=== PATIENT | male | born 1965 | race Caucasian/White ===

== ENCOUNTER 2016-04-28 05:27 | Inpatient (IN) | payer OTHER ==
--- NOTE | ~2016-04-28 | PA ---
Unit #: [id number] #: [id number] Patient: SAMY DELAROSA [id number] [place] [address] [id number] MR#: [id number] NAME: SAMY DELAROSA ROOM: 85 Age: 50 Sex: M Admission Date: 04/28/2016 : 1965 Date of Assessment: 04/28/2016 Attending Physician: Jose Jacome M.D. Admitting Physician: Jose Jacome M.D. Primary Care Physician: Primary Care Physician No PSYCHIATRIC ASSESSMENT DATE OF SERVICE 04/28/2016. INFORMANTS The patient reliability, fair; chart reliability, good. CHIEF COMPLAINT Alcohol abuse and pill abuse. HISTORY OF PRESENT ILLNESS Mr. Samy Delarosa is a 50-year-old male, seen on 04/28/2016. The patient presented to [facility] with suicidal ideation with a plan to take overdose of alcohol. The patient reported that he thinks of suicide daily. The patient reported that he drinks alcohol and took pills in an apparent suicide attempt. The patient reported that he was angry when he woke up and that he had not under diet. The patient reported that he has been drinking between a pint and a fifth of vodka daily for the last 2 weeks. The patient reports taking 30 Percocet daily. The patient reports depression and anxiety, not eating, not sleeping well. The patient reported that he is from his , 26 years, last week. The patient needed inpatient admission at this time for psychiatric stabilization. PAST PSYCHIATRIC HISTORY Remarkable for history of treatment in 1997 at [facility], in 1997, inpatient at [facility] for depression. FAMILY HISTORY AND SOCIAL HISTORY The patient is currently homeless, poor support system. The patient reported history of alcohol use in father and mother. History of alcoholism on both sides of the family. No history of any abuse. MEDICAL HISTORY Unremarkable for any chronic medical illness. Musculoskeletal; muscle strength and tone, no atrophy or abnormal movement. Gait normal. MEDICATION HISTORY None. ALLERGIES No known drug allergies. SUBSTANCE ABUSE HISTORY Unit #: [id number] #: [id number] Patient: SAMY DELAROSA The patient reported alcohol use, age of onset 16; a pint to one-fifth of vodka; opioid, age of onset 24, 30 mg daily orally; prescription medication, age of onset 48. The patient reported history of blackout, but no history of any IV drug use. REVIEW OF SYSTEMS HEENT: Eyes, clear. Ears, nose, mouth, and throat; clear. CARDIOVASCULAR: Unremarkable. RESPIRATORY: Unremarkable. GI: Unremarkable. : Unremarkable. SKIN: Unremarkable. LYMPH NODE: Unremarkable. NEUROLOGIC: Unremarkable. ENDOCRINE: Unremarkable. HEMATOLOGIC: Unremarkable. ALLERGIC/IMMUNOLOGIC: Unremarkable. MUSCULOSKELETAL: Muscle strength and tone, no atrophy or abnormal movement. Gait normal. MENTAL STATUS EXAMINATION CONSTITUTIONAL: Measurement of vital signs; temperature 98.4, pulse 88, respirations 16, and blood pressure 151/94. Height is 6 feet and weight 174 pounds. GENERAL APPEARANCE: The patient dressed casually. The patient did not show any facial deformity. MUSCULOSKELETAL: Please see above. PSYCHIATRIC EXAMINATION Description of speech; regular rate, normal volume, normal articulation. Description of thought process, goal directed. Description of association, intact. Description of abnormal psychotic thinking; the patient denied any hallucinations or delusions, but suicidal ideation with a plan. Denied any homicidal ideation. Substance abuse. Description of the patient's judgment: Concerning everyday activity, poor. Social situation, poor. Concerning psychiatric condition, poor. Complete mental status examination; oriented in time, place, and person. Recent and remote memory, fair. Attention span and concentration, fair. Language; able to name object, repeat phrases. Fund of knowledge; aware of current event, passive vocabulary intact. Mood and affect, sad and dysphoric. Insight and judgment were fair to poor. ASSETS AND LIABILITIES Assets; the patient is articulate, able to take care of his ADL. Liabilities; history of substance abuse, depression. ADMITTING DIAGNOSES Psychiatric: 1. Major depressive disorder, recurrent, severe, F33.2. 2. Alcohol use disorder, severe, F10.20. 3. Opioid use disorder, severe, F11.20. Secondary diagnosis: Deferred. Medical diagnoses: Hypertension, hard of hearing. Stressors: Psychosocial stressors. Unit #: [id number] #: [id number] Patient: SAMY DELAROSA PSYCHIATRIC PLAN, TREATMENT GOAL, AND DISCHARGE PLAN 1. Advised to admit the patient on the inpatient unit. Provide safe, supportive, and structured environment. 2. Ordered labs; CBC, CMP, UA, and UDS. 3. Precaution for self-harm and SP1 precaution. 4. The patient was started on detox protocol and detox monitoring. Advised to continue with current medications; amitriptyline 50 mg at bedtime, Neurontin 300 mg t.i.d., Lamictal 200 mg daily, and Zestril 10 mg daily. 5. The patient is to attend all the programing, group therapy, individual therapy, family session, and chemical dependency group. 6. Treatment goal is to attain euthymic mood, gain insight into his problem, and learn coping skills. 7. Discharge plan: Plan is to stabilize the patient and consider followup in outpatient program. ESTIMATED LENGTH OF STAY 5 to 7 days. Dictated by... Tory Beal/manuel TD: 04/28/2016 23:59 JOB #: [id number] PSYCHIATRIC ASSESSMENT X Jose Jacome MD PSYCHIATRIC ASSESSMENT
--- NOTE | ~2016-04-28 | DS ---
Unit #: [id number] #: [id number] Patient: SAMY GALICIA [id number] [facility] [address] [place] [address] [id number] MR#: [id number] NAME: SAMY GALICIA ROOM: [facility] Age: 50 Sex: M Admission Date: 04/28/2016 : 1965 Discharge Date: 05/02/2016 Attending Physician: Jose Jacome M.D. Primary Care Physician: Primary Care Physician No DISCHARGE SUMMARY REASON FOR ADMISSION Suicidal ideation and alcohol detox. DIAGNOSTIC STUDIES LABORATORY RESULTS: Remarkable for an AST of 202 and ALT 182. Urine drug screen is negative. HOSPITAL COURSE The patient was admitted to inpatient unit on 04/28/2016 and discharged on 05/02/2016. The patient was treated on the inpatient unit with chemical dependency group, expressive therapy, psychoeducation, psychotherapy, and structured milieu. The patient responded well with the above modalities of treatment and following medications. Subsequently, the patient was discharged with a plan to follow up in outpatient program. DISCHARGE MEDICATIONS Elavil 50 mg at bedtime for sleep, lisinopril 10 mg daily for hypertension, Lamictal 200 mg once daily for mood stabilization, and Neurontin 300 mg t.i.d. for mood stabilization and anxiety. DISCHARGE DIAGNOSES Psychiatric: 1. Major depressive disorder, recurrent, severe. 2. Alcohol use disorder, severe. 3. Opioid use disorder, severe. Secondary diagnosis: Deferred. Medical diagnoses: Hypertension, hard of hearing. Stressors: Psychosocial stressors. DISCHARGE INSTRUCTIONS The patient is to follow up in outpatient clinic as per director social welfare. PROGNOSIS Guarded. DIET AND ACTIVITY As tolerated. Dictated by... Jose Jacome M.D. Unit #: [id number] #: [id number] Patient: SAMY GALICIA SZC/modl TD: 05/02/2016 21:28 JOB #: [id number] DISCHARGE SUMMARY X Jose Jacome MD X DISCHARGE SUMMARY
--- NOTE | ~2016-04-28 | PN ---
Unit #: [id number] #: [id number] Patient: SAMY GALICIA [id number] [facility] [address] [place] [address] [id number] MR#: [id number] NAME: SAMY GALICIA ROOM: P185 Age: 50 Sex: M Admission Date: 04/28/2016 : 1965 Attending Physician: Jose Jacome M.D. Admitting Physician: Jose Jacome M.D. Primary Care Physician: Primary Care Physician Gail SAHU PROGRESS NOTES DATE 05/01/2016 DISCUSSION Mr. Rosales is a 50-year-old male, seen on 05/01/2016. The patient interviewed, chart reviewed, and obtained information from the nursing staff. The patient was compliant and cooperative. Mood sad and dysphoric, flat affect, and guarded. The patient has a history of polysubstance abuse. He continues to be isolative, guarded, and flat affect. No self-harming behavior. The patient is compliant with medication. REVIEW OF SYSTEMS Complete review of systems unremarkable. MENTAL STATUS EXAMINATION General appearance: Patient casually dressed. Attention span and concentration, fair. Oriented to place and person. Mood and affect, sad and dysphoric. Speech, monotone. Thought process, concrete. Association, the patient denied any thoughts of harming self or others or any psychotic symptoms. Recent and remote memory, poor. Insight and judgment, poor. DIAGNOSIS Mood disorder, NOS. ASSESSMENT/PLAN Advised to continue with the current medication and therapeutic protocol with a plan to consider discharge this week and consider further adjustment of medication. Dictated by... Tory Beal/franklyn TD: 05/02/2016 08:14 JOB #: [id number] Unit #: [id number] #: [id number] Patient: SAMY GALICIA [facility] PROGRESS NOTES X Jose Jacome MD PROGRESS NOTE
--- NOTE | ~2016-04-28 | PN ---
Unit #: [id number] #: [id number] Patient: SAMY GALICIA [id number] [facility] [address] [place] [address] [id number] MR#: [id number] NAME: SAMY GALICIA ROOM: [facility] Age: 50 Sex: M Admission Date: 04/28/2016 : 1965 Attending Physician: Jose Jacome M.D. Admitting Physician: Jose Jacome M.D. Primary Care Physician: Primary Care Physician Gail NIEVES NOTES DATE OF SERVICE: 04/29/2016 DISCUSSION Mr. Rosales is a 50-year-old male. The patient interviewed, chart reviewed, and obtained information from nursing staff. The patient was compliant and cooperative. Mood was sad, dysphoric, flat affect, guarded. The patient reports making progress, but still having the above-mentioned symptoms of withdrawals. The patient's thyroid function tests were unremarkable. CMP was remarkable for AST and ALT high at 202 and 182. Other CMP unremarkable. REVIEW OF SYSTEMS Complete review of systems unremarkable. MENTAL STATUS EXAMINATION General appearance, the patient is dressed casually. Attention span and concentration, fair. Oriented in place and person. Mood and affect, labile. Speech, slow. Thought process, circumstantial. Denied any thoughts of harming self or others, but guarded. Recent and remote memory, poor. Insight and judgment, poor. DIAGNOSES 1. Alcohol use disorder, severe. 2. Mood disorder, not otherwise specified. ASSESSMENT AND PLAN Advised to continue with current medication and therapeutic protocol. We will monitor response to medication and make further adjustment of medication. Dictated by... Tory Beal/manuel TD: 05/01/2016 01:33 JOB #: [id number] Unit #: [id number] #: [id number] Patient: SAMY GALICIA LUIS ALBERTO NIEVES NOTES X Jose Jacome MD NOTE
--- NOTE | ~2016-04-28 | PN ---
Unit #: [id number] #: [id number] Patient: SAMY DELAROSA [id number] [facility] [address] [place] [address] [id number] MR#: [id number] NAME: SAMY DELAROSA ROOM: [facility] Age: 50 Sex: M Admission Date: 04/28/2016 : 1965 Attending Physician: Jose Jacome M.D. Admitting Physician: Jose Jacome M.D. Primary Care Physician: Primary Care Physician Gail NIEVES NOTES DATE OF SERVICE: 04/30/2016 DISCUSSION Samy Delarosa is a 50-year-old male, seen on 04/30/2016. The patient interviewed, chart reviewed, and obtained information from nursing staff. The patient was compliant and cooperative, able to maintain safe behavior, but still seclusive, isolative, and guarded. Complete review of systems unremarkable. MENTAL STATUS EXAMINATION General appearance, the patient dressed casually. Attention span and concentration, fair. Oriented in place and person. Mood and affect were labile. Speech, regular rate. Thought process, goal directed. The patient denied any thoughts of harming self or others or any psychotic symptom, but seclusive and isolative. Recent and remote memory, poor. Insight and judgment, poor. DIAGNOSES 1. Alcohol use disorder, severe. 2. Mood disorder, not otherwise specified. ASSESSMENT AND PLAN Advised to continue with current medication and therapeutic protocol. If needed, consider further adjustment of medication. Vital signs; temperature 98.4, pulse 88, and blood pressure 126/90. Dictated by... Tory Beal/manuel TD: 05/01/2016 20:48 JOB #: [id number] Unit #: [id number] #: [id number] Patient: SAMY DELAROSA [facility] PROGRESS NOTES X Jose Jacome MD PROGRESS NOTE
--- NOTE | ~2016-04-28 | HP ---
Unit #: [id number] #: [id number] Patient: SAMY GALICIA [id number] [place] [address] [id number] MR#: [id number] NAME: SAMY GALICIA ROOM: P185 Age: 50 Sex: M Admission Date: 04/28/2016 : 1965 Attending Physician: Jose Jacome M.D. Admitting Physician: Jose Jacome M.D. Primary Care Physician: Primary Care Physician No HISTORY AND PHYSICAL HISTORY OF PRESENT ILLNESS Samy is a 50 year old admitted to [facility] because of his polysubstance abuse which includes alcohol and pain pills. PAST MEDICAL HISTORY 1. Long history of polysubstance abuse to include alcohol and pain pills. 2. High blood pressure. 3. Patient is hard of hearing. PAST SURGICAL HISTORY Nothing reported. ALLERGIES No known drug allergies. SOCIAL HISTORY Smokes 2 packs per day. Binge drinks at least a fifth of liquor on a daily basis and admits to history of abusing pain pills. FAMILY HISTORY Medically noncontributory. REVIEW OF SYSTEMS CONSTITUTIONAL: No fever or chills. HEENT: Denies any sore throat, ear pain or runny nose. CARDIOVASCULAR: Denies chest pain, irregular heart rhythm or palpitations. CHEST: Denies shortness of breath or cough. No hemoptysis. GASTROINTESTINAL: Denies nausea, vomiting, diarrhea or chronic constipation. ENDOCRINE: Denies history of increased thirst or urination. No recent significant weight loss or gain. GENITOURINARY: Denies dysuria, frequency, or hematuria. SKIN: Denies any rashes. HEMATOLOGIC: Denies history of increased bleeding or bruising. MUSCULOSKELETAL: Denies any hot, swollen joints. No generalized muscle pain. NEUROLOGIC: Denies problems with vision or speech. No frequent, severe headaches. No numbness, tingling or weakness in any extremities. Denies loss of bladder or bowel control. CURRENT MEDICATIONS 1. Detox protocol. Unit #: [id number] #: [id number] Patient: SAMY GALICIA 2. Amitriptyline 50 mg q.h.s. 3. Neurontin 300 mg t.i.d. 4. Lamictal 200 mg daily. 5. Zestril 10 mg daily. PHYSICAL EXAMINATION GENERAL: Alert, well-nourished, in no apparent distress. VITAL SIGNS: Blood pressure 150/94, heart rate 88, respirations 16, temperature 98.6. WEIGHT: 174. HEIGHT: 6 feet 0 inches. SKIN: Warm and dry without rash or lesion. HEENT: Normocephalic. TMs not viewed. Oral and nasal passages clear. Conjunctivae clear. PERRLA. EOMs intact. NECK: Supple without lymphadenopathy or thyromegaly. HEART: Regular rate and rhythm without murmur. LUNGS: Clear. ABDOMEN: Soft, nontender. : Not done. EXTREMITIES: No evidence of cyanosis, clubbing or edema. Moves all without focal deficit. NEUROLOGICAL: Grossly within normal limits. Cranial Nerves: II: Visual woodward are intact. III, IV AND : Extraocular movements are intact. Pupils are equal, round and reactive to light. V: Facial sensation is grossly normal. VII: Facial movements and expression are normal. VIII: Auditory acuity grossly intact. IX, X: Uvula is midline. Phonation is normal. XI: Patient shrugs shoulders and turns head normally. XII: Tongue protrudes in the midline. Sensory and Motor Function: Sensory and motor sensation is grossly normal. Motor: moves all extremities well. Coordination: Gait is normal. Deep Tendon Reflexes: Intact. IMPRESSION Psychiatric admission. RECOMMENDATIONS PSYCHIATRIC: Per psychiatrist. MEDICAL: 1. See no contraindications to participate in facility's activities. 2. Detox per protocol. 3. Continue Zestril. Monitor blood pressure q. shift. MEDICAL PROGNOSIS Good. MEDICAL CONDITION Stable. Dictated by... Marsha GonsalezADamien-Leigha. for Tory King/emily Unit #: [id number] #: [id number] Patient: SAMY GALICIA TD: 04/28/2016 16:44 JOB #: [id number] HISTORY AND PHYSICAL X Gogo Gilliland HISTORY AND PHYSICAL
[2016-04-28 10:02] LABS: URINE APPEARANCE CLEAR; URINE BILIRUBIN NEG (NEG); URINE BLOOD 1+ (NEG); URINE COLOR DK YELLOW; URINE GLUCOSE NEG (NEG); URINE KETONE TRACE (NEG); URINE LEUKOCYTE ESTERASE TRACE (NEG); URINE NITRATE NEG (NEG); URINE PH 7.5 (5-8); URINE PROTEIN NEG (NEG); URINE SPECIFIC GRAVITY 1.024 (1.003-1.035)
[2016-04-28 10:06] LABS: URBCS1 AUWI 25-50 /[HPF] (0-2); URINE BACTERIA AUWI NEG (NEGATIVE); URINE SQUAMOUS EPITHELIAL CELL NONE SEEN /[HPF]; UWBCS1 AUWI 0-2 (0-5)
[2016-04-28 10:37] LABS: AMPHETAMINE NEG (NEG); BARBITURATES NEG (NEG); BENZODIAZEPINES NEG (NEG); COCAINE NEG (NEG); MARIJUANA NEG (NEG); OPIATES NEG (NEG); TRICYCLIC ANTIDEPRESSANTS POS (NEG); U METHADONE NEG (NEG)
[2016-04-29 09:28] LABS: BASOPHIL% 0.6 % (0-2.5); EOSINOPHIL# 0.2 X10e3 (0-0.7); EOSINOPHIL% 2.6 % (0.0-7.0); HEMATOCRIT 44.3 % (38.0-50.0); HEMOGLOBIN 14.5 gm/dL (13.0-16.0); LYMPHOCYTE# 1.4 X10e3 (1.0-3.5); LYMPHOCYTE% 16.5 % (17.0-45.0); MEAN CELL VOLUME 84.7 FL (83-96); MEAN CORPUSCULAR HEMOGLOBIN 27.7 PG (28-34); MEAN CORPUSCULAR HGB CONC 32.7 g/dL (30-36); MEAN PLATELET VOLUME 8.9 FL (6.5-11.5); MONOCYTE# 0.5 X10e3 (0-1.0); MONOCYTE% 6.2 % (3.0-12.0); NEUTROPHIL# 6.1 X10e3 (1.5-7.1); NEUTROPHIL% 74.1 % (40-75); PLATELET COUNT 164 X10e3 (140-420); RED BLOOD COUNT 5.23 X10e (3.90-5.60); RED CELL DISTRIBUTION WIDTH 14.4 % (11.0-15.5); WHITE BLOOD COUNT 8.2 X10e3 (4.0-10.5)
[2016-04-29 09:35] LABS: DIFF IND NO
[2016-04-29 09:50] LABS: ALBUMIN SERUM 3.6 g/dL (3.5-5.0); ALKALINE PHOSPHATASE 81 U/L (32-92); ALT (SGPT) 182 U/L (10-40); AST (SGOT) 202 U/L (10-42); BILIRUBIN,TOTAL 0.4 mg/dL (0.2-2.0); BLOOD UREA NITROGEN 11 mg/dL (9-23); BUN/CREATININE RATIO 15.71; CALCIUM SERUM 8.8 mg/dL (8.4-10.2); CARBON DIOXIDE 27 mmol/L (22-31); CHLORIDE 103 mmol/L (100-111); CREATININE SERUM 0.7 mg/dL (0.6-1.4); GLOM FILT RATE Estimated ABOVE60 mL/min (>60); GLUCOSE FASTING 88 mg/dL (70-110); POTASSIUM 3.9 mmol/L (3.5-5.1); PROTEIN TOTAL SERUM 6.1 g/dL (6.0-8.3); SODIUM 137 mmol/L (135-145)
[2016-04-29 09:53] LABS: THYROID STIMULATING HORMONE 1.6 uIU/ml (0.34-5.60)
== END 2016-05-02 09:45 | disposition home or self-care (01) | DRG 885 ==
LOC: P1E 05:27
PROVIDERS: Psychiatry & Neurology Psychiatry
PROC: HZ2ZZZZ Detoxification Services for Substance Abuse Treatment (ICD-10-PCS; principal; 2016-04-28)
DX: F33.2 Major depressive disorder, recurrent severe without psychotic features (principal); F11.20 Opioid dependence, uncomplicated; I10 Essential (primary) hypertension; F10.20 Alcohol dependence, uncomplicated; H91.90 Unspecified hearing loss, unspecified ear; F17.200 Nicotine dependence, unspecified, uncomplicated
CPT/HCPCS: 80053; 80307; 81003; 84439; 84443; 85025; 86592